=== PATIENT | male | born 1995 | race Caucasian/White ===

== ENCOUNTER 2018-12-02 12:22 | Emergency (ER) | payer OTHER ==
[2018-12-02 12:29] VITALS: BP 157/105
[2018-12-02] MEDS ORDERED: TETANUS IMMUNE GLOBULIN/PF 250 UNIT SYR IM ONE (12:36)
[2018-12-02] MEDS ORDERED: TDAP ADULT 0.5 ML INJ (BOOSTRIX) IM ONE (12:37)
--- NOTE | 2018-12-02 12:39 | EDPHY ---
H & P Time Seen by Provider: 12/02/18 12:32 HPI/ROS: CHIEF COMPLAINT: Left thumb laceration HISTORY OF PRESENT ILLNESS: 23-year-old [id number] male works at [employer], was cutting food when he sustained accidental laceration to his left thumb. Occurred shortly prior to arrival. No paresthesia. No sensory motor deficit. Patient was born in [place] and was never vaccinated against tetanus. PHYSICAL EXAM (Prior to examination, patient consented to physical exam, hands were washed and my usual and customary physical exam procedures followed) 1) GENERAL: Well-developed, well-nourished, alert and oriented. Appears to be in no acute distress. 2) HEAD: Normocephalic 3) HEENT: sclera anicteric 4) LUNGS: Breathing comfortably. 5) SKIN: Left thumb 2.5 cm well-demarcated linear laceration. 6) MUSCULOSKELETAL: Flexor and extensor function at the MCP and IP are intact no deficits both actively and passively. He is able hold against resistance. . No signs of infection. 7) NEUROLOGIC: Full sensation two-point discrimination intact. Smoking Status: Never smoked Constitutional: Initial Vital Signs Temperature (C) 36.5 C 12/02/18 12:26 Heart Rate 94 12/02/18 12:26 Respiratory Rate 16 12/02/18 12:26 Blood Pressure 157/105 H 12/02/18 12:26 O2 Sat (%) 95 12/02/18 12:26 O2 Delivery Mode Room Air Allergies/Adverse Reactions: No Known Allergies Allergy (Unverified 12/02/18 12:29) Home Medications: Medication Instructions Recorded NK [No Known Home Meds] 12/02/18 MDM/Departure - MDM Procedures: Procedure: Laceration repair. I explained the indications, risks and benefits for both laceration repair and anesthetic administration. Verbal consent was obtained from the patient. The laceration on the left thumb was anesthetized using 0.5% bupivicaine without epinephrine digital nerve block. After anesthetic administered the patient was observed for a period of time and had no apparent adverse effects. The wound was cleaned, prepped, draped in normal sterile fashion and explored to its base. No foreign body seen, no foreign bodies palpated. There were no deep structures involved. No tendon injury was identified. The wound was repaired with 5 simple interrupted 5 O Prolene sutures. The wound repair was simple. The procedure was performed by myself. Patient has been informed that scarring will occur, although efforts have been made to minimize this. Medications Given: Discontinued Medications Diphtheria/Tetanus/Acell Pertussis (Boostrix) 0.5 ml IM .ONCE ONE Stop: 12/02/18 12:38 Last Admin: 12/02/18 13:03 Dose: 0.5 ml Tetanus Immune Globulin (Hypertet S-D) 250 unit IM .ONCE ONE Stop: 12/02/18 12:37 Last Admin: 12/02/18 13:00 Dose: 250 unit ED Course/Re-evaluation: Patient has never been vaccinated against tetanus. He had has been given tetanus immune globulin as well as tetanus vaccine. He also received wound closure, see procedure note. He will be given usual customary wound precautions and instructions. Care of patient under supervision of secondary supervising physician Natalio Patient feels comfortable being discharged. All questions and concerns addressed by myself. Patient given my usual and customary discharge precautions and instructions regarding their clinical impression. - Depart Disposition: Home, Routine, Self-Care Clinical Impression: Laceration of left thumb Qualifiers: Encounter type: initial encounter Damage to nail status: without damage Foreign body presence: without foreign body Qualified Code(s): S61.012A - Laceration without foreign body of left thumb without damage to nail, initial encounter Condition: Good Instructions: Laceration (ED) Additional Instructions: Return to the ER if you develop redness, swelling, discharge, warmth to the wound, red streaks going up your arm, or any other symptoms that concern you. Regrese al departamento de emergencias si desarolla enrrojecimiento, hinchazon, desecho, calor en la herida, lineas elizabeth en el brazo, o cualquier otro sintoma que le preocupe. Referrals: Return, to the ER in 10 days for suture removal [Other] - As per Instructions Print Language: [place]
== END 2018-12-02 13:48 | disposition home or self-care (01) ==
PROC: 0HQGXZZ Repair Left Hand Skin, External Approach (ICD-10-PCS; principal; 2018-12-02)
DX: S61.012A Laceration without foreign body of left thumb without damage to nail, initial encounter (principal); Z23 Encounter for immunization; W26.9XXA Contact with unspecified sharp object(s), initial encounter; Y99.0 Civilian activity done for income or pay; Y93.G1 Activity, food preparation and clean up
CPT/HCPCS: J1670